=== PATIENT | female | born 1960 | race Caucasian/White ===

== ENCOUNTER 2016-05-30 11:07 | Outpatient (CLI) | payer OTHER | END 2016-05-30 11:08 | disposition home or self-care (01) | DX: Z00.00 Encounter for general adult medical examination without abnormal findings (principal) ==

== ENCOUNTER 2016-12-03 08:00 | Outpatient (CLI) | payer OTHER ==
[2016-12-03 14:14] LABS: BASOPHILS % (AUTO) 0.3 %; EOSINOPHILS # (AUTO) 0.1 10^3/uL (0.0-0.7); HGB - HEMOGLOBIN 11.9 g/dL (12.0-16.0); LYMPHOCYTES # (AUTO) 1.8 10^3/uL (1.5-3.5); LYMPHOCYTES % (AUTO) 21.9 %; MEAN PLATELET VOLUME 8.3 fL (7.9-10.8); MONOCYTES # (AUTO) 0.6 10^3/uL (0.0-1.0); MONOCYTES % (AUTO) 7.5 %; NEUTROPHILS # (AUTO) 5.6 10^3/uL (1.5-6.6); NEUTROPHILS % (AUTO) 69.3 %; NUCLEATED RED BLOOD CELLS AUTO 0.3 /100WBC; RED BLOOD COUNT 4.23 10^6/uL (4.20-5.40); RED CELL DISTRIBUTION WIDTH 13.4 % (12.0-15.0); UNCORRECTED WHITE BLOOD COUNT 8.1 x10^3/uL; WHITE BLOOD COUNT 8.1 x10^3/uL (4.8-10.8)
[2016-12-03 14:26] LABS: ALBUMIN/GLOBULIN RATIO 1.2 (1.0-2.2); BILIRUBIN,TOTAL 0.9 mg/dL (0.2-1.0); CALCIUM 9.2 mg/dL (8.5-10.3); CREATININE 0.7 mg/dL (0.4-1.0); TOTAL PROTEIN 7.6 g/dL (6.7-8.2)
[2016-12-03 17:39] LABS: CHOL/HDL RATIO 3.1 (<4.4); CHOLESTEROL 245 mg/dL; HDL CHOLESTEROL 79 mg/dL; LDL/HDL RATIO 1.9 (<4.4); TRIGLYCERIDES 87 mg/dL; VLDL CHOLESTEROL 17 mg/dL
== END 2016-12-03 08:01 | disposition home or self-care (01) ==
LOC: LAB.WCP 08:00
PROVIDERS: ATTEND Family Medicine
DX: E78.00 Pure hypercholesterolemia, unspecified (principal); K57.92 Diverticulitis of intestine, part unspecified, without perforation or abscess without bleeding
CPT/HCPCS: 36415; 80053; 80061; 85025; 86140

== ENCOUNTER 2016-12-11 11:01 | Outpatient (CLI) | payer OTHER ==
--- NOTE | 2016-12-11 17:41 | Mammography Report ---
DIGITAL DIAGNOSTIC BILATERAL MAMMOGRAM: 12/11/2016 CLINICAL INDICATION: Bilateral breast pain. TECHNIQUE: Bilateral CC, MLO, true lateral views of the breasts were obtained. The patient describe d the pain as diffuse throughout the upper-outer quadrants bilaterally, so no marker was placed. COMPARISON: 02/14/2016, 02/04/2015, 01/01/2014, 12/19/2012, 10/09/2010, 11/01/2009, 07/20/2008, 06/21. The breasts demonstrate fatty replacement bilaterally. No suspicious masses, clustered microcalcific ations, or regions of architectural distortion are identified. IMPRESSION: NEGATIVE EXAMINATION. RECOMMENDATION: ROUTINE ANNUAL SCREENING UNLESS OTHERWISE CLINICALLY INDICATED. BIRADS CATEGORY: 1, NEGATIVE. STANDARD QUALIFYING STATEMENTS 1. This examination was reviewed with the aid of Computed-Aided Detection (CAD). 2. A negative or benign imaging report should not delay biopsy if clinically suspicious findings are present. Consider surgical consultation if warranted. More than 5% of cancers are not identified b y imaging. 3. Dense breasts may obscure an underlying neoplasm. JOB #: [id number] EXT JOB #:[id number]
== END 2016-12-11 11:02 | disposition home or self-care (01) ==
LOC: DI 11:01
PROVIDERS: ATTEND Family Medicine
DX: N64.4 Mastodynia (principal)
CPT/HCPCS: 77066

== ENCOUNTER 2017-04-06 18:52 | Outpatient (CLI) | payer BC, OTHER | END 2017-04-06 18:53 | disposition critical access hospital (66) | LOC: EMS 18:52 | PROVIDERS: ATTEND Surgery | DX: R00.0 Tachycardia, unspecified (principal) | CPT/HCPCS: A0425; A0429 ==

== ENCOUNTER 2017-04-06 19:09 | Emergency (ER) | payer BC, OTHER ==
--- NOTE | 2017-04-06 19:51 | XRAY Preliminary Report ---
Exam: XR CHEST 1 VIEW IMPRESSION: Normal single view chest. [facility] SITE ID: [id number]
--- NOTE | 2017-04-06 19:53 | XRAY Report ---
EXAM: CHEST RADIOGRAPHY EXAM DATE: 04/06/2017 07:42 PM. CLINICAL HISTORY: Dyspnea. COMPARISON: 11/24/2012. TECHNIQUE: 1 view. FINDINGS: Lungs/Pleura: No focal opacities evident. No pleural effusion. No pneumothorax. Mediastinum: Within exam limitations, the cardiomediastinal contour is normal. Other: No bony abnormality identified. IMPRESSION: Normal single view chest. [facility] Referring Provider Line: [phone] SITE ID: [id number]
[2017-04-06 20:08] LABS: ALBUMIN/GLOBULIN RATIO 1.4 (1.0-2.2); BILIRUBIN,TOTAL 0.4 mg/dL (0.2-1.0); CALCIUM 9.2 mg/dL (8.5-10.3); CREATININE 0.8 mg/dL (0.4-1.0); POTASSIUM 3.5 mmol/L (3.5-5.0); TOTAL PROTEIN 7.6 g/dL (6.7-8.2)
[2017-04-06 20:19] LABS: BASOPHILS # (AUTO) 0.1 10^3/uL (0.0-0.1); BASOPHILS % (AUTO) 0.7 %; EOSINOPHILS # (AUTO) 0.1 10^3/uL (0.0-0.7); EOSINOPHILS % (AUTO) 1.6 %; HCT - HEMATOCRIT 39.2 % (37.0-47.0); HGB - HEMOGLOBIN 12.9 g/dL (12.0-16.0); LYMPHOCYTES # (AUTO) 2.8 10^3/uL (1.5-3.5); LYMPHOCYTES % (AUTO) 35.7 %; MEAN CORPUSCULAR HEMOGLOBIN 28.2 pg (27.0-31.0); MEAN CORPUSCULAR VOLUME 85.3 fL (81.0-99.0); MEAN PLATELET VOLUME 7.9 fL (7.9-10.8); MONOCYTES # (AUTO) 0.6 10^3/uL (0.0-1.0); NEUTROPHILS # (AUTO) 4.2 10^3/uL (1.5-6.6); RED BLOOD COUNT 4.59 10^6/uL (4.20-5.40); RED CELL DISTRIBUTION WIDTH 12.5 % (12.0-15.0); UNCORRECTED WHITE BLOOD COUNT 7.8 x10^3/uL; WHITE BLOOD COUNT 7.8 x10^3/uL (4.8-10.8)
[2017-04-06] MEDS ORDERED: LORazepam 2 MG/ML SYRINGE IVP STA (20:29)
--- NOTE | 2017-04-06 20:29 | ED Physician Documentation ---
PD HPI CHEST PAIN - Stated complaint Stated Complaint: SOA/HEART PALPS - Chief complaint Chief Complaint: Resp - History obtained from History obtained from: Patient, Family - History of Present Illness Timing - onset: How many days ago Timing - onset during: Other (talking to her sister debo) Timing - duration: Hours (1) Timing - details: Abrupt onset Pain level max: 4 Pain level now: 3 Quality: Aching, Sharp, Pain Location: Substernal, Left chest Radiation: Jaw, Neck, Left upper extremity Improved by: Nothing Worsened by: No: Exertion, Inspiration, Eating, Movement, Palpation, Position Associated symptoms: Shortness of air, Other (anxious) Similar symptoms before: Diagnosis (anxiety, PVC, PAC) Recently seen: Not recently seen Review of Systems Ten Systems: 10 systems reviewed and negative Constitutional: denies: Fever, Chills Ears: denies: Ear pain Nose: denies: Rhinorrhea / runny nose, Congestion Throat: denies: Sore throat Respiratory: denies: Dyspnea, Cough, Wheezing GI: denies: Abdominal Pain, Nausea, Vomiting, Diarrhea Skin: denies: Rash Musculoskeletal: denies: Neck pain, Back pain Neurologic: denies: Focal weakness, Numbness, Headache PD PAST MEDICAL HISTORY - Past Medical History Past Medical History: Yes GI: Diverticulitis Psych: Anxiety, Panic attacks, Post traumatic stress disorder - Past Surgical History Past Surgical History: Yes General: Appendectomy - Present Medications Home Medications: Ambulatory Orders Medication Instructions Recorded Confirmed ALPRAZolam [Alprazolam] 1 tab PO DAILY 08/06/14 04/06/17 Acyclovir 400 mg PO PRN 08/06/14 08/06/14 Aspirin 81 mg PO DAILY 08/06/14 04/06/17 Cetirizine HCl [Zyrtec] 10 mg PO DAILY 08/06/14 04/06/17 Cyclobenzaprine HCl 10 mg PO DAILY 08/06/14 04/06/17 Fluticasone [Flonase] 1 sprays FRIEDA DAILY 08/06/14 04/06/17 Krill/[place]-3/Dha/Epa/Lipids 1 each PO DAILY 08/06/14 04/06/17 [Krill Oil 300 mg Softgel] Naproxen [Naprosyn] 500 mg PO BID PRN 08/06/14 04/06/17 Promethazine HCl 25 mg PO Q6HR PRN 08/06/14 04/06/17 Valacyclovir HCl [Valtrex] 2 tab PO DAILY 08/06/14 04/06/17 - Allergies Allergies/Adverse Reactions: Allergies Allergy/AdvReac Type Severity Reaction Status Date / Time Penicillins Allergy Unknown Verified 04/06/17 19:19 - Social History Does the pt smoke?: No Smoking Status: Never smoker Does the pt drink ETOH?: No Does the pt have substance abuse?: No - Immunizations Immunizations are current?: Yes - POLST Patient has POLST: No PD ED PE NORMAL - Vitals Vital signs reviewed: Yes - General General: Alert and oriented X 3, No acute distress - HEENT HEENT: PERRL, Moist mucous membranes, Pharynx benign - Neck Neck: Supple, no meningeal sign - Cardiac Cardiac: RRR, Strong equal pulses - Respiratory Respiratory: No respiratory distress, Clear bilaterally - Abdomen Abdomen: Soft, Non tender, Non distended - Derm Derm: Warm and dry, No rash - Extremities Extremities: Normal ROM s pain, No edema, No calf tenderness / cord - Neuro Neuro: Alert and oriented X 3 - Psych Psych: Other (anxious) Results - Vitals Vitals: Vital Signs - 24 hr 04/06/17 04/06/17 04/06/17 19:10 19:45 20:22 Temperature 36.7 C Heart Rate 105 H 93 87 Respiratory 17 14 18 Rate Blood Pressure 159/98 H 147/86 H 136/81 H O2 Saturation 99 100 97 04/06/17 04/06/17 21:00 22:38 Temperature Heart Rate 88 86 Respiratory 15 16 Rate Blood Pressure 124/71 110/65 O2 Saturation 96 100 Oxygen O2 Source Room air - EKG (time done) 1912 Rate: Rate (enter#) (105) Rhythm: Sinus tachycardia [place]: Normal Intervals: Normal NV QRS: Normal Ischemia: Normal ST segments Computer interpretation: Agree with computer - Labs Labs: Laboratory Tests 04/06/17 04/06/17 04/06/17 18:34 18:34 18:34 WBC 7.8 RBC 4.59 Hgb 12.9 Hct 39.2 MCV 85.3 MCH 28.2 MCHC 33.0 RDW 12.5 Plt Count 275 MPV 7.9 Neut # 4.2 Lymph # 2.8 [place] # 0.6 Eos # 0.1 Baso # 0.1 Absolute Nucleated RBC 0.00 Nucleated RBC % 0.0 D-Dimer Sodium 137 Potassium 3.5 Chloride 100 L Carbon Dioxide 21 Anion Gap 16.0 H BUN 18 Creatinine 0.8 Estimated GFR (MDRD) 74 L Glucose 97 Calcium 9.2 Total Bilirubin 0.4 AST 21 ALT 17 Alkaline Phosphatase 92 Troponin I < 0.04 Total Protein 7.6 Albumin 4.4 Globulin 3.2 Albumin/Globulin Ratio 1.4 Lipase 36 04/06/17 04/06/17 18:34 21:50 WBC RBC Hgb Hct MCV MCH MCHC RDW Plt Count MPV Neut # Lymph # [place] # Eos # Baso # Absolute Nucleated RBC Nucleated RBC % D-Dimer < 200.0 L Sodium Potassium Chloride Carbon Dioxide Anion Gap BUN Creatinine Estimated GFR (MDRD) Glucose Calcium Total Bilirubin AST ALT Alkaline Phosphatase Troponin I < 0.04 Total Protein Albumin Globulin Albumin/Globulin Ratio Lipase - Rads (name of study) cxr Radiology: Prelim report reviewed, EMP read contemporaneously, See rad report ( Normal single view chest. ) PD MEDICAL DECISION MAKING - ED course Complexity details: reviewed results, re-evaluated patient, considered differential (No ST elevation AR, no aortic dissection, no PE, no tension pneumothorax, no aortic aneurysm), d/w patient, d/w family ED course: Patient is a 57-year-old female with atypical chest pain today. Feels like her prior anxiety and PVC attacks. Negative troponin 2. HEART score of 1. took ASA BUG TRIMMER. Symptoms resolved with Ativan. Will have her follow-up with her doctor for further evaluation and care. Patient counseled regarding signs and symptoms for which I believe and urgent re-evaluation would be necessary. Patient with good understanding of and agreement to plan and is comfortable going home at this time This document was made in part using voice recognition software. While efforts are made to proofread this document, sound alike and grammatical errors may occur... Patient also within the past 2 years has had negative treadmill and nuclear medicine cardiac stress test. Departure - Departure Disposition: 01 Home, Self Care Clinical Impression: Chest pain Qualifiers: Chest pain type: unspecified Qualified Code(s): R07.9 - Chest pain, unspecified Condition: Good Instructions: ED Chest Pain Atypical Unkn Cause Follow-Up: Young,Ydui L, PA-C [Primary Care Provider] - Within 1 week Comments: The cause of your symptoms is unclear tonight. Return if you worsen. Discharge Date/Time: 04/06/17 22:39
[2017-04-06] MEDS ORDERED: LORazepam 2 MG/ML SYRINGE ONE (20:40)
[2017-04-06 22:39] VITALS: BP 110/65
== END 2017-04-06 22:39 | disposition home or self-care (01) ==
LOC: EDUNIT# → ED 19:09
DX: R07.9 Chest pain, unspecified (principal)
CPT/HCPCS: 36415; 71010; 80053; 83690; 84484; 85025; 85379; 93005; 96374; 99284; 99285; J2060

== ENCOUNTER 2017-07-11 08:00 | Outpatient (CLI) | payer BC, OTHER ==
[2017-07-11 18:45] LABS: BASOPHILS % (AUTO) 0.5 %; EOSINOPHILS # (AUTO) 0.2 10^3/uL (0.0-0.7); EOSINOPHILS % (AUTO) 1.8 %; HGB - HEMOGLOBIN 13.1 g/dL (12.0-16.0); LYMPHOCYTES # (AUTO) 2.6 10^3/uL (1.5-3.5); LYMPHOCYTES % (AUTO) 30.5 %; MEAN CORPUSCULAR HEMOGLOBIN 27.7 pg (27.0-31.0); MEAN CORPUSCULAR HGB CONC 32.5 g/dL (32.0-36.0); MEAN CORPUSCULAR VOLUME 85.3 fL (81.0-99.0); MEAN PLATELET VOLUME 8.3 fL (7.9-10.8); MONOCYTES # (AUTO) 0.7 10^3/uL (0.0-1.0); MONOCYTES % (AUTO) 8.1 %; NEUTROPHILS # (AUTO) 5.1 10^3/uL (1.5-6.6); NEUTROPHILS % (AUTO) 59.1 %; PLT - PLATELET COUNT 285 10^3/uL (130-450); RED BLOOD COUNT 4.74 10^6/uL (4.20-5.40); RED CELL DISTRIBUTION WIDTH 12.9 % (12.0-15.0); WHITE BLOOD COUNT 8.6 x10^3/uL (4.8-10.8)
[2017-07-11 19:01] LABS: ALBUMIN 4.2 g/dL (3.2-5.5); ALBUMIN/GLOBULIN RATIO 1.2 (1.0-2.2); ALKALINE PHOSPHATASE 88 IU/L (42-121); ALT ALANINE AMINOTRANSFERASE 17 IU/L (10-60); AST ASPARTATE AMINOTRANSFERASE 20 IU/L (10-42); BILIRUBIN,TOTAL 0.7 mg/dL (0.2-1.0); BUN - BLOOD UREA NITROGEN 11 mg/dL (6-20); CALCIUM 9.2 mg/dL (8.5-10.3); CARBON DIOXIDE - CO2 26 mmol/L (21-32); CHLORIDE 102 mmol/L (101-111); CHOL/HDL RATIO 3.8 (<4.4); CHOLESTEROL 242 mg/dL; CREATININE 0.7 mg/dL (0.4-1.0); GFR - MDRD 87 (>89); GLUCOSE 87 mg/dL (70-100); HDL CHOLESTEROL 64 mg/dL; LDL CHOLESTEROL,CALCULATED 147 mg/dL; LDL/HDL RATIO 2.3 (<4.4); SODIUM 139 mmol/L (135-145); TOTAL PROTEIN 7.7 g/dL (6.7-8.2); VLDL CHOLESTEROL 31 mg/dL
== END 2017-07-11 08:01 | disposition home or self-care (01) ==
LOC: LAB.WCP 08:00
PROVIDERS: ATTEND Physician Assistant Medical
DX: Z00.00 Encounter for general adult medical examination without abnormal findings (principal)
CPT/HCPCS: 36415; 80053; 80061; 83721; 84443; 85025

== ENCOUNTER 2018-04-18 17:28 | Emergency (ER) | payer BC, OTHER ==
[2018-04-18 17:39] VITALS: BP 152/87
--- NOTE | 2018-04-18 17:57 | ED Physician Documentation ---
History of Present Illness - Stated complaint Stated Complaint: PER OLIVE ELLIOTT SHINLIAM - Chief complaint Chief Complaint: General - History obtained from History obtained from: Patient - History of Present Illness Timing: Today (She has had shingles in the past. She has a single nonpainful lesion on the right upper arm. She is worried about shingles) Review of Systems Constitutional: denies: Fever, Chills, Myalgias, Fatigue, Weight Loss Eyes: denies: Loss of vision, Decreased vision, Photophobia Ears: denies: Loss of hearing, Ear pain Nose: denies: Rhinorrhea / runny nose, Congestion Throat: denies: Sore throat PD PAST MEDICAL HISTORY - Past Medical History Past Medical History: Yes Cardiovascular: None Respiratory: None Neuro: None, Migraines Endocrine/Autoimmune: None GI: Diverticulitis ONCOLOGY COORDINATOR: None : None HEENT: None Psych: Anxiety, Panic attacks, Post traumatic stress disorder Musculoskeletal: None Derm: None - Past Surgical History Past Surgical History: Yes General: Appendectomy - Present Medications Home Medications: Ambulatory Orders Medication Instructions Recorded Confirmed ALPRAZolam [Alprazolam] 1 tab PO DAILY 08/06/14 04/06/17 Acyclovir 400 mg PO PRN 08/06/14 08/06/14 Aspirin 81 mg PO DAILY 08/06/14 04/06/17 Cyclobenzaprine HCl 10 mg PO DAILY 08/06/14 04/06/17 Fluticasone [Flonase] 1 sprays FRIEDA DAILY 08/06/14 04/06/17 Krill/[place]-3/Dha/Epa/Lipids 1 each PO DAILY 08/06/14 04/06/17 [Krill Oil 300 mg Softgel] Naproxen [Naprosyn] 500 mg PO BID PRN 08/06/14 04/06/17 Promethazine HCl 25 mg PO Q6HR PRN 08/06/14 04/06/17 Valacyclovir HCl [Valtrex] 2 tab PO PRN 08/06/14 04/06/17 Acyclovir [Zovirax] 800 mg PO 5XD #50 tablet 04/18/18 - Allergies Allergies/Adverse Reactions: Allergies Allergy/AdvReac Type Severity Reaction Status Date / Time Penicillins Allergy Unknown Verified 04/18/18 17:39 - Social History Does the pt smoke?: No Smoking Status: Never smoker Does the pt drink ETOH?: No Does the pt have substance abuse?: No - Immunizations Immunizations are current?: Yes - POLST Patient has POLST: No PD ED PE NORMAL - Vitals Vital signs reviewed: Yes - General General: Alert and oriented X 3, No acute distress - HEENT HEENT: PERRL, EOMI - Neck Neck: Supple, no meningeal sign, No bony TTP - Extremities Extremities: Other (There is a single small vesicular lesion on the right upper arm. It is not on a red base and there are no grouped vesicles.) - Neuro Neuro: Alert and oriented X 3, Normal speech Results - Vitals Vitals: Vital Signs - 24 hr 04/18/18 17:36 Temperature 36.4 C L Heart Rate 96 Respiratory 18 Rate Blood Pressure 152/87 H O2 Saturation 100 Oxygen O2 Source Room air PD MEDICAL DECISION MAKING - ED course ED course: Really at this point this is not consistent with shingles, its only a single lesion. We discussed that this might develop into shingles, and I offered her a [id number] prescription for acyclovir. Departure - Departure Disposition: 01 Home, Self Care Clinical Impression: Rash and nonspecific skin eruption Condition: Good Record reviewed to determine appropriate education?: Yes Prescriptions: Acyclovir [Zovirax] 800 mg PO 5XD #50 tablet Comments: You can start the acyclovir if you get more lesions, if you get new or worrisome symptoms please return for reevaluation. Your blood pressure was elevated today on check into the emergency department. This does not mean that you have hypertension, it is a common phenomenon to come to the emergency department and have elevated blood pressure. I recommend that you see your primary care physician within the week to have it rechecked when you are feeling better.
== END 2018-04-18 17:58 | disposition home or self-care (01) ==
LOC: ED 17:28
DX: R21 Rash and other nonspecific skin eruption (principal); R03.0 Elevated blood-pressure reading, without diagnosis of hypertension; Z87.2 Personal history of diseases of the skin and subcutaneous tissue; Z79.82 Long term (current) use of aspirin
CPT/HCPCS: 99283

== ENCOUNTER 2019-02-12 08:00 | Outpatient (CLI) | payer BC, OTHER ==
[2019-02-12 12:04] LABS: BASOPHILS % (AUTO) 0.6 %; EOSINOPHILS # (AUTO) 0.1 10^3/uL (0.0-0.7); EOSINOPHILS % (AUTO) 1.6 %; HGB - HEMOGLOBIN 12.5 g/dL (12.0-16.0); LYMPHOCYTES # (AUTO) 2.1 10^3/uL (1.5-3.5); LYMPHOCYTES % (AUTO) 30.4 %; MEAN CORPUSCULAR HEMOGLOBIN 27.4 pg (27.0-31.0); MEAN CORPUSCULAR HGB CONC 30.9 g/dL (32.0-36.0); MEAN CORPUSCULAR VOLUME 88.4 fL (81.0-99.0); MEAN PLATELET VOLUME 9.9 fL (7.9-10.8); MONOCYTES # (AUTO) 0.6 10^3/uL (0.0-1.0); MONOCYTES % (AUTO) 8.4 %; NEUTROPHILS % (AUTO) 58.6 %; PLT - PLATELET COUNT 384 10^3/uL (130-450); RED BLOOD COUNT 4.57 10^6/uL (4.20-5.40); RED CELL DISTRIBUTION WIDTH 12.2 % (12.0-15.0); WHITE BLOOD COUNT 6.8 x10^3/uL (4.8-10.8)
[2019-02-12 13:06] LABS: ALBUMIN 4.2 g/dL (3.2-5.5); ALBUMIN/GLOBULIN RATIO 1.1 (1.0-2.2); ALKALINE PHOSPHATASE 95 IU/L (42-121); ALT ALANINE AMINOTRANSFERASE 21 IU/L (10-60); AST ASPARTATE AMINOTRANSFERASE 22 IU/L (10-42); BILIRUBIN,TOTAL 0.5 mg/dL (0.2-1.0); BUN - BLOOD UREA NITROGEN 13 mg/dL (6-20); CALCIUM 9.5 mg/dL (8.5-10.3); CARBON DIOXIDE - CO2 27 mmol/L (21-32); CHLORIDE 105 mmol/L (101-111); CHOL/HDL RATIO 3.7 (<4.4); CHOLESTEROL 234 mg/dL; CREATININE 0.8 mg/dL (0.4-1.0); GFR - MDRD 74 (>89); GLUCOSE 93 mg/dL (70-100); HDL CHOLESTEROL 64 mg/dL; LDL CHOLESTEROL,CALCULATED 147 mg/dL; LDL/HDL RATIO 2.3 (<4.4); SODIUM 140 mmol/L (135-145); TOTAL PROTEIN 7.9 g/dL (6.7-8.2); VLDL CHOLESTEROL 23 mg/dL
[2019-02-13 13:11] LABS: HEPATITIS C ANTIBODY NON-REACTIVE (NON-REACTIVE)
== END 2019-02-12 23:59 | disposition home or self-care (01) ==
LOC: LAB.WCP 08:00
PROVIDERS: ATTEND Physician Assistant Medical
DX: Z00.00 Encounter for general adult medical examination without abnormal findings (principal); Z11.59 Encounter for screening for other viral diseases
CPT/HCPCS: 36415; 80053; 80061; 83721; 84443; 85025; 86803

== ENCOUNTER 2020-01-06 16:47 | Outpatient (CLI) | payer OTHER ==
--- NOTE | 2020-01-06 17:53 | XRAY Report ---
PROCEDURE: Knee Standing BILAT INDICATIONS: KNEE PAIN LEFT TECHNIQUE: 3 views of the right knee, and 3 views of the left knee. COMPARISON: None. FINDINGS: Bones: No acute fractures or dislocations. No suspicious bony lesions. Mild bilateral medial femora l tibial compartment joint space narrowing is seen slightly more prominent on the left side with subc hondral sclerosis. Soft tissues: Small left suprapatellar joint effusion is seen.. No suspicious soft tissue calcificat ion. IMPRESSION: Mild left worse than right bilateral medial femoral tibial compartment joint space narrowing. Small l eft suprapatellar joint effusion. Reviewed by: Aldo Shaw MD on 01/06/2020 5:52 PM PDT Approved by: Aldo Shaw MD on 01/06/2020 5:52 PM PDT Station ID: [id number]
--- NOTE | 2020-01-06 17:54 | XRAY Report ---
PROCEDURE: Knee 4 View LT INDICATIONS: KNEE PAIN LEFT TECHNIQUE: 4 views of the left knee(s) were acquired. COMPARISON: None. FINDINGS: Bones: Mild medial femoral tibial compartment joint space narrowing and subchondral sclerosis is see n in left knee. No fractures or dislocations. No suspicious bony lesions. Soft tissues: Small suprapatellar joint effusion is seen. No suspicious soft tissue calcifications. IMPRESSION: Mild medial femoral tibial compartment osteoarthritis. Small joint effusion. No fracture or dislocation. Reviewed by: Aldo Shaw MD on 01/06/2020 5:52 PM PDT Approved by: Aldo Shaw MD on 01/06/2020 5:52 PM PDT Station ID: [id number]
== END 2020-01-06 16:48 | disposition home or self-care (01) ==
LOC: DI 16:47
PROVIDERS: ATTEND Nurse Practitioner Family
DX: M17.0 Bilateral primary osteoarthritis of knee (principal); M25.462 Effusion, left knee
CPT/HCPCS: 73565

== ENCOUNTER 2020-02-09 15:25 | Outpatient (CLI) | payer OTHER ==
--- NOTE | 2020-02-10 14:13 | Mammography Report ---
BILATERAL DIGITAL SCREENING MAMMOGRAM 3D/2D: 02/09/2020 CLINICAL: Routine screening. Comparison is made to exams dated: 12/11/2016 mammogram, 02/14/2016 mammogram, 02/04/2015 mammogram, mammogram, 12/19/2012 mammogram, and 10/09/2010 mammogram - [facility]. There are scattered fibroglandular elements in both breasts. No significant masses, calcifications, or other findings are seen in either breast. There has been no significant interval change. IMPRESSION: NEGATIVE There is no mammographic evidence of malignancy. A 1 year screening mammogram is recommended. This exam was interpreted at Station ID: [id number]. NOTE: For mammograms, a report in lay terms will be sent to the patient. Approximately 15% of breast malignancies will not be visualized mammographically. In the management of a palpable breast mass, a negative mammogram must not discourage biopsy of a clinically suspicious lesion. Electronically Signed By: Luis Buck M.D., jr/darron:02/09/2020 16:20:47 ACR BI-RADS Category 1: Negative 3341F PARENCHYMAL PATTERN: (A) - The breast(s) demonstrate(s) scattered fibroglandular densities. BI-RADS CATEGORY: (1) - 1 RECOMMENDATION: (ANNUAL) - Recommend routine annual screening mammography. [id number] 1 year screening LATERALITY: (B)
== END 2020-02-09 15:26 | disposition home or self-care (01) ==
LOC: DI 15:25
DX: Z12.31 Encounter for screening mammogram for malignant neoplasm of breast (principal)
CPT/HCPCS: 77063; 77067

== ENCOUNTER 2020-06-07 07:55 | Outpatient (CLI) | payer OTHER ==
[2020-06-07 13:24] LABS: BASOPHILS % (AUTO) 0.6 %; EOSINOPHILS # (AUTO) 0.1 10^3/uL (0.0-0.7); EOSINOPHILS % (AUTO) 1.8 %; HGB - HEMOGLOBIN 12.3 g/dL (12.0-16.0); LYMPHOCYTES # (AUTO) 2.8 10^3/uL (1.5-3.5); LYMPHOCYTES % (AUTO) 39.4 %; MEAN CORPUSCULAR HEMOGLOBIN 27.9 pg (27.0-31.0); MEAN CORPUSCULAR HGB CONC 30.8 g/dL (32.0-36.0); MEAN CORPUSCULAR VOLUME 90.7 fL (81.0-99.0); MEAN PLATELET VOLUME 10.3 fL (7.9-10.8); MONOCYTES # (AUTO) 0.6 10^3/uL (0.0-1.0); MONOCYTES % (AUTO) 8.7 %; NEUTROPHILS # (AUTO) 3.5 10^3/uL (1.5-6.6); NEUTROPHILS % (AUTO) 49.1 %; PLT - PLATELET COUNT 280 10^3/uL (130-450); RED BLOOD COUNT 4.41 10^6/uL (4.20-5.40); RED CELL DISTRIBUTION WIDTH 12.4 % (12.0-15.0)
[2020-06-07 13:25] LABS: ALBUMIN 4.4 g/dL (3.2-5.5); ALBUMIN/GLOBULIN RATIO 1.5 (1.0-2.2); ALKALINE PHOSPHATASE 92 IU/L (42-121); ALT ALANINE AMINOTRANSFERASE 19 IU/L (10-60); AST ASPARTATE AMINOTRANSFERASE 19 IU/L (10-42); BILIRUBIN,TOTAL 0.7 mg/dL (0.2-1.0); BUN - BLOOD UREA NITROGEN 21 mg/dL (6-20); CALCIUM 9.4 mg/dL (8.5-10.3); CARBON DIOXIDE - CO2 25 mmol/L (21-32); CHLORIDE 102 mmol/L (101-111); CHOL/HDL RATIO 4.1 (<4.4); CHOLESTEROL 265 mg/dL; CREATININE 0.8 mg/dL (0.4-1.0); GLUCOSE 91 mg/dL (70-100); HDL CHOLESTEROL 65 mg/dL; LDL CHOLESTEROL,CALCULATED 185 mg/dL; LDL/HDL RATIO 2.8 (<4.4); SODIUM 139 mmol/L (135-145); TOTAL PROTEIN 7.3 g/dL (6.7-8.2); VLDL CHOLESTEROL 15 mg/dL
== END 2020-06-07 07:56 | disposition home or self-care (01) ==
LOC: LAB.WCP 07:55
PROVIDERS: ATTEND Nurse Practitioner Family
DX: Z00.00 Encounter for general adult medical examination without abnormal findings (principal)
CPT/HCPCS: 36415; 80053; 80061; 83721; 84443; 85025

== ENCOUNTER 2020-07-13 15:05 | Outpatient (CLI) | payer OTHER ==
--- NOTE | 2020-07-13 17:06 | Ultrasound Report ---
PROCEDURE: Pelvic w/Transvaginal INDICATIONS: ENDOMETRIAL TECHNIQUE: Real-time scanning was performed of the pelvic organs, with image documentation. Additional endovagi nal scanning was necessary due to incomplete visualization of the adnexal and endometrial structures by transabdominal scanning. COMPARISON: Prior ultrasound abdomen 06/24/2018. FINDINGS: No pathologic free abdominal or pelvic fluid. Uterus: Uterus is normal in size at 4.3 x 4.6 x 8.4 cm. The endometrium measures 4.0 mm in combined thickness. There is a dominant uterine fibroid, on the right extending from anterior to posterior a nd measuring up to 4.8 x 3.0 x 5.2 cm. This likely has not significantly changed from the prior measu rements of 5.4 x 4.4 x 4.6 cm. Ovaries: Right ovary is not visualized, left ovary measures 1.7 x 0.8 x 0.8 cm. IMPRESSION: Nonvisualization of the right ovary, normal appearance of the left ovary, no significant change in a large uterine fibroid that measures up to 4.8 x 3.0 x 5.2 cm currently. Reviewed by: Hector Hopkins MD on 07/13/2020 5:05 PM PST Approved by: Hector Hopkins MD on 07/13/2020 5:05 PM PST Station ID: [id number]
== END 2020-07-13 15:06 | disposition home or self-care (01) ==
LOC: DI 15:05
PROVIDERS: ATTEND Nurse Practitioner Family
DX: D25.9 Leiomyoma of uterus, unspecified (principal); Z98.890 Other specified postprocedural states

== ENCOUNTER 2020-07-22 16:00 | Outpatient (CLI) | payer OTHER ==
--- NOTE | 2020-07-22 16:48 | XRAY Report ---
PROCEDURE: Abdomen 1 View X-Ray INDICATIONS: RUQ PAIN TECHNIQUE: 1 view of the abdomen were acquired. COMPARISON: None. FINDINGS: Surgical changes and devices: None. Bowel: No pneumoperitoneum. The bowel gas pattern is normal. Moderate stool Soft tissues: No masses; visualized solid organ contours appear normal in size. No suspicious abdom inal calcifications. Bones: No suspicious bony abnormalities. IMPRESSION: No specific evidence of bowel obstruction although continued surveillance with abdominal radiographs could be performed if the patient's symptoms do not improve. Moderate stool Reviewed by: Sung Pizano MD on 07/22/2020 4:47 PM PST Approved by: Sung Pizano MD on 07/22/2020 4:47 PM PST Station ID: [id number]
== END 2020-07-22 23:59 | disposition home or self-care (01) ==
LOC: DI.N 16:00
PROVIDERS: ATTEND Physician Assistant Medical
DX: R10.11 Right upper quadrant pain (principal)

== ENCOUNTER 2020-11-29 08:00 | Outpatient (CLI) | payer OTHER ==
[2020-11-29 18:23] LABS: CHOL/HDL RATIO 4.3 (<4.4); CHOLESTEROL 291 mg/dL; HDL CHOLESTEROL 68 mg/dL; LDL CHOLESTEROL,CALCULATED 184 mg/dL; LDL/HDL RATIO 2.7 (<4.4); TRIGLYCERIDES 197 mg/dL; VLDL CHOLESTEROL 39 mg/dL
== END 2020-11-29 23:59 | disposition home or self-care (01) ==
LOC: LAB.WCP 08:00
PROVIDERS: ATTEND Physician Assistant Medical
DX: E78.00 Pure hypercholesterolemia, unspecified (principal)
CPT/HCPCS: 36415; 80061; 83721

== ENCOUNTER 2020-12-02 08:08 | Outpatient (CLI) | payer OTHER ==
[2020-12-02 12:27] LABS: THYROID STIMULATING HORMONE 3.1 uIU/mL (0.34-5.60)
== END 2020-12-02 23:59 | disposition home or self-care (01) ==
LOC: LAB.WCP 08:08
PROVIDERS: ATTEND Physician Assistant Medical
DX: Z00.00 Encounter for general adult medical examination without abnormal findings (principal)
CPT/HCPCS: 36415; 84443

== ENCOUNTER 2021-01-24 11:41 | Day surgery (SDC) | payer OTHER ==
--- NOTE | 2021-01-24 12:44 | ANESTHESIA ---
Pre-Anesthesia VS, & Labs - Diagnosis diverticulitis, family history of colon cancer - Procedure colonoscopy Vital Signs: Temp Pulse Resp BP Pulse Ox 37.1 C 84 18 127/84 H 100 01/24/21 11:56 01/24/21 11:56 01/24/21 11:56 01/24/21 11:56 01/24/21 11:56 Height: 5 ft 5 in Weight (kg): 65 kg Body Mass Index: 23.8 BMI Classification: Healthy weight - NPO >8 hours - Is Patient ?: No Home Medications and Allergies ALPRAZolam [Alprazolam] 1 tab PO DAILY 08/06/14 Aspirin 81 mg PO DAILY 08/06/14 Fluticasone [Flonase] 1 sprays FRIEDA DAILY 08/06/14 Krill/[place]-3/Dha/Epa/Lipids [Krill Oil 300 mg Softgel] 1 each PO DAILY 08/06/14 Allergies/Adverse Reactions: Allergies Allergy/AdvReac Type Severity Reaction Status Date / Time Penicillins Allergy Unknown Verified 04/18/18 17:39 Anes History & Medical History - Anesthetic History Anesthesia Complications: reports: No previous complications - Medical History Cardiovascular: reports: High cholesterol Pulmonary: reports: None Gastrointestinal: reports: Diverticulitis Urinary: reports: None Neuro: reports: None, Migraines Musculoskeletal: reports: None Endocrine/Autoimmune: reports: None Blood Disorders: reports: None Skin: reports: None Smoking Status: Never smoker - Surgical History General: reports: Appendectomy Exam General: Alert, Oriented x3 Dental: WNL Mouth Opening: Greater than 4 Fingerbreadths Mallampati classification: II Respiratory: Lungs clear Cardiovascular: Regular rate Plan Anesthesia Type: Total IV Consent for Procedure(s) Verified and Reviewed: Yes Code Status: Attempt Resuscitation ASA classification: 2-Mild systemic disease Is this case an emergency?: No
[2021-01-24] MEDS ORDERED: PROPOFOL 500 MG/50 ML 500 MG/50 ML VIAL ONE (13:02)
[2021-01-24] MEDS ORDERED: LACTATED RINGERS 1,000 ML IV ONE (13:43)
[2021-01-24 14:41] VITALS: BP 110/72
--- NOTE | 2021-01-24 15:55 | ANESTHESIA POST OP EVALUATION ---
Anesthesia Post Eval - Post Anesthesia Eval Vitals: Last Vital Signs Temp 36.4 C L 01/24/21 14:20 Pulse 84 01/24/21 14:20 Resp 12 01/24/21 14:20 BP 110/72 01/24/21 14:20 Pulse Ox 100 01/24/21 14:20 CV Function Including HR & BP: Stable Pain Control: Satisfactory Nausea & Vomiting: Negative Mental Status: Baseline Respiratory Status: Airway Patent Hydration Status: Satisfactory Anesthesia Complications: None
[2021-01-24] MEDS ORDERED: ePHEDrine 50 MG/ML VIAL IVP ONE (17:11)
== END 2021-01-24 11:42 | disposition home or self-care (01) ==
LOC: SDS 11:41
PROVIDERS: ATTEND Surgery
DX: Z12.11 Encounter for screening for malignant neoplasm of colon (principal); K57.30 Diverticulosis of large intestine without perforation or abscess without bleeding; K64.8 Other hemorrhoids; K64.4 Residual hemorrhoidal skin tags; Z86.010 Personal history of colon polyps; Z80.0 Family history of malignant neoplasm of digestive organs
CPT/HCPCS: 45378; J7120

== ENCOUNTER 2021-02-27 11:00 | Outpatient (CLI) | payer OTHER ==
[2021-02-27 18:58] LABS: CHOL/HDL RATIO 3.8 (<4.4); CHOLESTEROL 276 mg/dL; HDL CHOLESTEROL 73 mg/dL; LDL CHOLESTEROL,CALCULATED 184 mg/dL; LDL/HDL RATIO 2.5 (<4.4); TRIGLYCERIDES 94 mg/dL; VLDL CHOLESTEROL 19 mg/dL
== END 2021-02-27 23:59 | disposition home or self-care (01) ==
LOC: LAB.WCP 11:00
PROVIDERS: ATTEND Physician Assistant Medical
DX: I10 Essential (primary) hypertension (principal); E78.00 Pure hypercholesterolemia, unspecified
CPT/HCPCS: 36415; 80061; 83721

== ENCOUNTER 2022-06-29 09:41 | Outpatient (CLI) | payer OTHER ==
--- NOTE | 2022-07-03 12:22 | Mammography Report ---
BILATERAL DIGITAL SCREENING MAMMOGRAM 3D/2D: 06/29/2022 CLINICAL: Routine screening. Sister with breast cancer. Comparison is made to exams dated: 02/09/2020 mammogram, 12/11/2016 mammogram, 02/14/2016 mammogram, mammogram, 01/01/2014 mammogram, and 12/19/2012 mammogram - [facility]. There are scattered areas of fibroglandular density in both breasts (category b / 25%-50% glandular t issue). No significant masses, calcifications, or other findings are seen in either breast. There has been no significant interval change. IMPRESSION: NEGATIVE There is no mammographic evidence of malignancy. A 1 year screening mammogram is recommended. This exam was interpreted at Station ID: [id number]. NOTE: For mammograms, a report in lay terms will be sent to the patient. Approximately 15% of breast malignancies will not be visualized mammographically. In the management of a palpable breast mass, a negative mammogram must not discourage biopsy of a clinically suspicious lesion. Electronically Signed By: Jessica prajapati/darron:07/02/2022 17:36:54 ACR BI-RADS Category 1: Negative 3341F PARENCHYMAL PATTERN: (A) - The breast(s) demonstrate(s) scattered fibroglandular densities. BI-RADS CATEGORY: (1) - 1 RECOMMENDATION: (ANNUAL) - Recommend routine annual screening mammography. [id number] 1 year screening LATERALITY: (B)
== END 2022-06-29 09:42 | disposition home or self-care (01) ==
LOC: DI 09:41
DX: Z12.31 Encounter for screening mammogram for malignant neoplasm of breast (principal); Z80.3 Family history of malignant neoplasm of breast

== ENCOUNTER 2023-05-15 14:32 | Outpatient (CLI) | payer OTHER ==
[2023-05-15 18:02] LABS: BASOPHILS # (AUTO) 0.1 10^3/uL (0.0-0.1); BASOPHILS % (AUTO) 0.8 %; EOSINOPHILS # (AUTO) 0.2 10^3/uL (0.0-0.7); EOSINOPHILS % (AUTO) 2.5 %; HCT - HEMATOCRIT 42.6 % (37.0-47.0); HGB - HEMOGLOBIN 13.6 g/dL (12.0-16.0); LYMPHOCYTES # (AUTO) 3.2 10^3/uL (1.5-3.5); LYMPHOCYTES % (AUTO) 40.2 %; MEAN CORPUSCULAR HEMOGLOBIN 28.3 pg (27.0-31.0); MEAN CORPUSCULAR HGB CONC 31.9 g/dL (32.0-36.0); MEAN CORPUSCULAR VOLUME 88.6 fL (81.0-99.0); MEAN PLATELET VOLUME 10.2 fL (7.9-10.8); MONOCYTES # (AUTO) 0.5 10^3/uL (0.0-1.0); MONOCYTES % (AUTO) 6.6 %; NEUTROPHILS # (AUTO) 3.9 10^3/uL (1.5-6.6); NEUTROPHILS % (AUTO) 49.6 %; PLT - PLATELET COUNT 316 10^3/uL (130-450); RED BLOOD COUNT 4.81 10^6/uL (4.20-5.40); RED CELL DISTRIBUTION WIDTH 12.4 % (12.0-15.0); WHITE BLOOD COUNT 7.9 x10^3/uL (4.8-10.8)
[2023-05-15 18:25] LABS: ALBUMIN 4.6 g/dL (3.2-5.5); ALBUMIN/GLOBULIN RATIO 1.7 (1.0-2.2); ALKALINE PHOSPHATASE 94 IU/L (42-121); ALT ALANINE AMINOTRANSFERASE 17 IU/L (10-60); AST ASPARTATE AMINOTRANSFERASE 18 IU/L (10-42); BILIRUBIN,TOTAL 0.6 mg/dL (0.2-1.0); BUN - BLOOD UREA NITROGEN 12 mg/dL (6-20); CALCIUM 9.7 mg/dL (8.5-10.3); CARBON DIOXIDE - CO2 27 mmol/L (21-32); CHLORIDE 105 mmol/L (101-111); CHOL/HDL RATIO 2.6 (<4.4); CHOLESTEROL 180 mg/dL; CREATININE 0.7 mg/dL (0.6-1.3); GFR - MDRD 85 (>89); GLUCOSE 90 mg/dL (74-104); HDL CHOLESTEROL 68 mg/dL; LDL CHOLESTEROL,CALCULATED 85 mg/dL; LDL/HDL RATIO 1.3 (<4.4); POTASSIUM 4.3 mmol/L (3.5-4.5); SODIUM 140 mmol/L (135-145); TOTAL PROTEIN 7.3 g/dL (6.4-8.9); TRIGLYCERIDES 134 mg/dL (48-352); VLDL CHOLESTEROL 27 mg/dL
[2023-05-15 18:29] LABS: THYROID STIMULATING HORMONE 2.59 uIU/mL (0.34-5.60)
== END 2023-05-15 14:33 | disposition home or self-care (01) ==
LOC: LAB.N 14:32
PROVIDERS: ATTEND Physician Assistant Medical
DX: I10 Essential (primary) hypertension (principal); Z13.220 Encounter for screening for lipoid disorders; Z13.29 Encounter for screening for other suspected endocrine disorder
CPT/HCPCS: 36415; 80053; 80061; 83721; 84443; 85025

== ENCOUNTER 2023-06-27 16:23 | Outpatient (CLI) | payer OTHER ==
--- NOTE | 2023-06-27 20:25 | XRAY Report ---
PROCEDURE: Hips w/Pelvis 2-3V BL INDICATIONS: HIP PAIN,LEFT TECHNIQUE: AP view the pelvis and lateral views of the right and left hips COMPARISON: CT abdomen/pelvis 02/14/2016 FINDINGS: Bones: No fractures or dislocations. No suspicious bony lesions. The visualized pelvic ring appear s intact. Mild degenerative changes in the hips bilaterally as well as the pubic symphysis. Minimal degenerative changes in the spine. Soft tissues: No suspicious soft tissue calcifications or masses. 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 Reviewed by: Sage Torres MD on 06/27/2023 8:24 PM PST Approved by: Sage Torres MD on 06/27/2023 8:24 PM PST Station ID: [id number]
--- NOTE | 2023-06-27 20:29 | XRAY Report ---
PROCEDURE: Knee 3V BL INDICATIONS: LEG PAIN,RIGHT TECHNIQUE: 3 views of both knees were acquired. COMPARISON: Bilateral knee radiographs 01/06/2020 FINDINGS: Bones: No acute fractures or dislocations. No suspicious bony lesions. Mild joint space narrowing is seen at the medial femorotibial compartments bilaterally. The lateral and anterior compartment caitie int spaces are well-maintained. Findings do not appear significantly changed compared to the radiogra phs from 01/06/2020. Soft tissues: No knee joint effusion. No suspicious soft tissue calcifications. IMPRESSION: Mild bilateral medial compartment osteoarthrosis. Reviewed by: Sage Torres MD on 06/27/2023 8:28 PM PST Approved by: Sage Torres MD on 06/27/2023 8:28 PM PST Station ID: [id number]
== END 2023-06-27 16:24 | disposition home or self-care (01) ==
LOC: DI 16:23
PROVIDERS: ATTEND Physician Assistant Medical
DX: M79.604 Pain in right leg (principal); M17.0 Bilateral primary osteoarthritis of knee; M16.0 Bilateral primary osteoarthritis of hip; M19.09 Primary osteoarthritis, other specified site

== ENCOUNTER 2023-07-04 15:43 | Emergency (ER) | payer OTHER ==
--- NOTE | 2023-07-04 16:14 | XRAY Report ---
PROCEDURE: Chest 1V INDICATIONS: Chest pain TECHNIQUE: One view of the chest was acquired. COMPARISON: None. FINDINGS: Surgical changes and devices: None. Lungs and pleura: No pleural effusions or pneumothorax. Lungs are clear. Mediastinum: Mediastinal contours appear normal. Heart size is normal. Bones and chest wall: No suspicious bony lesions. Overlying soft tissues appear unremarkable. IMPRESSION: No acute cardiopulmonary process. Reviewed by: Chico Sims MD on 07/04/2023 4:12 PM PST Approved by: Chico Sims MD on 07/04/2023 4:12 PM PST Station ID: [id number]
[2023-07-04 16:17] LABS: BASOPHILS % (AUTO) 0.5 %; EOSINOPHILS # (AUTO) 0.2 10^3/uL (0.0-0.7); EOSINOPHILS % (AUTO) 1.8 %; HCT - HEMATOCRIT 42.3 % (37.0-47.0); HGB - HEMOGLOBIN 13.5 g/dL (12.0-16.0); LYMPHOCYTES # (AUTO) 2.8 10^3/uL (1.5-3.5); LYMPHOCYTES % (AUTO) 33.2 %; MEAN CORPUSCULAR HGB CONC 31.9 g/dL (32.0-36.0); MEAN CORPUSCULAR VOLUME 87.8 fL (81.0-99.0); MEAN PLATELET VOLUME 9.4 fL (7.9-10.8); MONOCYTES # (AUTO) 0.6 10^3/uL (0.0-1.0); MONOCYTES % (AUTO) 7.1 %; NEUTROPHILS # (AUTO) 4.8 10^3/uL (1.5-6.6); PLT - PLATELET COUNT 275 10^3/uL (130-450); RED BLOOD COUNT 4.82 10^6/uL (4.20-5.40); WHITE BLOOD COUNT 8.5 x10^3/uL (4.8-10.8)
--- NOTE | 2023-07-04 16:28 | ED Physician Documentation ---
PD HPI CHEST PAIN - Stated complaint Stated Complaint: CHEST PX/SOA/LIGHT HEADED - Chief complaint Chief Complaint: Cardiac - Additional information Additional information: 63-year-old female with history of PVCs hypercholesterolemia presents emergency department today for chest pain. 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 She says shortly after this she started to experienceDizziness with some chest pain that radiated to her left shoulder blade. 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 : None HEENT: None Psych: Anxiety, Panic attacks, Post traumatic stress disorder Musculoskeletal: None Derm: None - Past Surgical History Past Surgical History: Yes General: Appendectomy - Present Medications Home Medications: Ambulatory Orders Medication Instructions Recorded Confirmed ALPRAZolam [Alprazolam] 1 tab PO DAILY 08/06/14 01/20/21 Aspirin 81 mg PO DAILY 08/06/14 01/20/21 Fluticasone [Flonase] 1 sprays FRIEDA DAILY 08/06/14 01/20/21 Krill/[place]-3/Dha/Epa/Lipids 1 each PO DAILY 08/06/14 01/20/21 [Krill Oil 300 mg Softgel] Acyclovir [Zovirax] 800 mg PO 5XD #50 tablet 04/18/18 01/20/21 - Allergies Allergies/Adverse Reactions: Allergies Allergy/AdvReac Type Severity Reaction Status Date / Time Penicillins Allergy Unknown Verified 07/04/23 15:46 - Social History Does the pt smoke?: No Smoking Status: Never smoker Does the pt drink ETOH?: No Does the pt have substance abuse?: No - Immunizations Immunizations are current?: Yes - POLST Patient has POLST: No PD ED PE NORMAL - Vitals Vital signs reviewed: Yes - General General: Alert and oriented X 3, No acute distress, Well developed/nourished - HEENT HEENT: Atraumatic - Neck Neck: Supple, no meningeal sign, No JVD - Cardiac Cardiac: RRR, No murmur, No gallop, Strong equal pulses - Respiratory Respiratory: No respiratory distress - Abdomen Abdomen: Normal bowel sounds, Non tender - Derm Derm: Normal color, No rash - Extremities Extremities: No edema - Neuro Neuro: Alert and oriented X 3, it operations analyst 2-12 intact, No motor deficit, No sensory deficit, Normal speech Eye Opening: Spontaneous Motor: Obeys Commands Verbal: Oriented GCS Score: 15 - Psych Psych: Normal mood Results - Vitals Vitals: Vital Signs - 24 hr 07/04/23 07/04/23 07/04/23 15:46 16:30 16:56 Temperature 36.8 C Heart Rate 100 91 94 Respiratory 16 16 16 Rate Blood Pressure 180/89 H 143/79 H 143/79 H O2 Saturation 100 96 98 07/04/23 07/04/23 17:30 19:00 Temperature 36.8 C Heart Rate 90 88 Respiratory 16 16 Rate Blood Pressure 121/82 H 120/84 H O2 Saturation 98 98 Oxygen O2 Source Room air - EKG (time done) 1612 EKG releavant findings:: EKG personally interpreted by author of this note. Relevant findings are: Rate: Rate (enter#) (94) Rhythm: NSR [place]: LAD Intervals: Normal [place] QRS: Normal Ischemia: Normal ST segments Computer interpretation: Agree with computer - Labs Labs: Laboratory Tests 07/04/23 07/04/23 07/04/23 16:10 16:10 16:10 WBC 8.5 RBC 4.82 Hgb 13.5 Hct 42.3 MCV 87.8 MCH 28.0 MCHC 31.9 L RDW 12.0 Plt Count 275 MPV 9.4 Neut # (Auto) 4.8 Lymph # (Auto) 2.8 [place] # (Auto) 0.6 Eos # (Auto) 0.2 Baso # (Auto) 0.0 Absolute Nucleated RBC 0.00 Nucleated RBC % 0.0 Sodium 137 Potassium 4.0 Chloride 103 Carbon Dioxide 27 Anion Gap 7.0 BUN 17 Creatinine 0.7 Estimated GFR (MDRD) 85 L Glucose 120 H Calcium 9.8 Magnesium 2.0 Total Bilirubin 0.4 AST 20 ALT 19 Alkaline Phosphatase 108 Troponin I High Sens 3.4 Total Protein 8.0 Albumin 4.9 Globulin 3.1 Albumin/Globulin Ratio 1.6 Lipase 28 07/04/23 18:29 WBC RBC Hgb Hct MCV MCH MCHC RDW Plt Count MPV Neut # (Auto) Lymph # (Auto) [place] # (Auto) Eos # (Auto) Baso # (Auto) Absolute Nucleated RBC Nucleated RBC % Sodium Potassium Chloride Carbon Dioxide Anion Gap BUN Creatinine Estimated GFR (MDRD) Glucose Calcium Magnesium Total Bilirubin AST ALT Alkaline Phosphatase Troponin I High Sens 5.9 Total Protein Albumin Globulin Albumin/Globulin Ratio Lipase - Rads (name of study) chest Xray Relevant Findings:: Final report received, EMP independent interpretation of test (No cardiopulmonary abnormalities ) PD Medical Decision Making - ED course ED course: Exam without evidence of volume overload so doubt heart failure. EKG without signs of active ischemia. Given the timing of pain to ER presentation, delta troponin was negative so doubt NSTEMI. Presentation not consistent with acute PE (Wells low risk),pneumothorax (not visualized on chest xr), thoracic aortic dissection, pericarditis, tamponade, pneumonia (no infectious symptoms, clear chest xr), myocarditis (no recent illness, neg trop). HEART score:3 points so plan to discharge patient home with PCP follow up. Pts symptoms have fully resolved. Labs complete, CBC overall unremarkable no leukocytosis no anemia, chemistry also is overall unremarkable, potassium 4.0, magnesium 2.0, troponins are also complete x 2, no elevation greater than 7 over 2-hour period. Lipase also found to be within normal limits. Pt told to follow up with her PCP and she was given strict ER return precautions. Departure - Departure Disposition: 01 Home, Self Care Clinical Impression: Chest pain Qualifiers: Chest pain type: unspecified Qualified Code(s): R07.9 - Chest pain, unspecified Condition: Good Instructions: ED Chest Pain Atypical Unkn Cause Comments: Thank you for trusting us with your care we have completed labs as well as a chest x-ray and an EKG and none of them are showing any acute findings of cardiac abnormalities. As we discussed please follow-up with your primary care provider let them know about this ER visit. Please come back to the ER if the chest pain comes back, if you start to develop any dizziness, shortness of breath, or any other concerning symptoms. Forms: PCP List Discharge Date/Time: 07/04/23 19:30
[2023-07-04 16:34] LABS: ALBUMIN 4.9 g/dL (3.2-5.5); ALBUMIN/GLOBULIN RATIO 1.6 (1.0-2.2); BILIRUBIN,TOTAL 0.4 mg/dL (0.2-1.0); CALCIUM 9.8 mg/dL (8.5-10.3); CREATININE 0.7 mg/dL (0.6-1.3)
[2023-07-04 16:40] LABS: TROPONIN I HIGH SENSITIVITY 3.4 ng/L (2.3-14.8)
[2023-07-04 16:59] VITALS: O2SAT 98
[2023-07-04 19:24] VITALS: BP 120/84
== END 2023-07-04 19:30 | disposition home or self-care (01) ==
LOC: ED 15:43
DX: R07.9 Chest pain, unspecified (principal)
CPT/HCPCS: 36415; 80053; 83690; 83735; 84484; 85025; 93005; 99284

== ENCOUNTER 2023-07-24 08:00 | Outpatient (CLI) | payer OTHER ==
[2023-07-24 14:11] LABS: BACTERIAL VAGINOSIS DNA NEGATIVE (NEGATIVE); CANDIDA GLABRATA DNA NEGATIVE (NEGATIVE); CANDIDA GROUP DNA NEGATIVE (NEGATIVE); CANDIDA KRUSEI DNA NEGATIVE (NEGATIVE); TRICHOMONAS VAGINALIS DNA NEGATIVE (NEGATIVE)
== END 2023-07-24 23:59 | disposition home or self-care (01) ==
LOC: LAB.WCP 08:00
PROVIDERS: ATTEND Physician Assistant
DX: N89.8 Other specified noninflammatory disorders of vagina (principal); L30.4 Erythema intertrigo; B37.2 Candidiasis of skin and nail
CPT/HCPCS: 81514

== ENCOUNTER 2023-09-14 17:28 | Observation (INO) | payer OTHER ==
--- NOTE | 2023-09-14 18:02 | ED Physician Documentation ---
PD HPI ABD PAIN - Stated complaint Stated Complaint: ABD PRESSURE,NAUSEA - Chief complaint Chief Complaint: Abd Pain - History obtained from History obtained from: Patient - Additional information Additional information: She has a history of recurrent diverticulitis. Starting almost a month ago she developed upper abdominal pain which transitioned into the left lower abdomen consistent with prior episodes of diverticulitis. She was seen at the walk-in clinic a week ago and put on Cipro and Flagyl noting a penicillin allergy and has not improved. 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 HEENT: None Psych: Anxiety, Panic attacks, Post traumatic stress disorder Musculoskeletal: None Derm: None - Past Surgical History Past Surgical History: Yes General: Appendectomy - Present Medications Home Medications: Ambulatory Orders Medication Instructions Recorded Confirmed ALPRAZolam [Alprazolam] 1 tab PO DAILY 08/06/14 01/20/21 Aspirin 81 mg PO DAILY 08/06/14 01/20/21 Fluticasone [Flonase] 1 sprays FRIEDA DAILY 08/06/14 01/20/21 Krill/[place]-3/Dha/Epa/Lipids 1 each PO DAILY 08/06/14 01/20/21 [Krill Oil 300 mg Softgel] Acyclovir [Zovirax] 800 mg PO 5XD #50 tablet 04/18/18 01/20/21 - Allergies Allergies/Adverse Reactions: Allergies Allergy/AdvReac Type Severity Reaction Status Date / Time adhesive Allergy Hives Verified 09/14/23 17:45 Penicillins Allergy Unknown Verified 09/14/23 17:45 - Social History Does the pt smoke?: No Smoking Status: Never smoker Does the pt drink ETOH?: No Does the pt have substance abuse?: No - Immunizations Immunizations are current?: Yes - POLST Patient has POLST: No PD ED PE NORMAL - Vitals Vital signs reviewed: Yes - General General: Alert and oriented X 3, No acute distress - Cardiac Cardiac: RRR, No murmur - Respiratory Respiratory: No respiratory distress, Clear bilaterally - Abdomen Abdomen: Other (Mild tenderness in the left lower quadrant without surgical signs, There is mild rebound tenderness in the left lower quadrant as well.) - Neuro Neuro: Alert and oriented X 3 Results - Vitals Vitals: Vital Signs - 24 hr 09/14/23 09/14/23 17:40 19:45 Temperature 36.7 C 36.4 C L Heart Rate 76 78 Respiratory 16 16 Rate Blood Pressure 125/81 H 122/77 O2 Saturation 98 97 Oxygen O2 Source Room air - Labs Labs: Laboratory Tests 09/14/23 09/14/23 09/14/23 16:10 16:10 17:52 WBC 13.1 H RBC 4.38 Hgb 12.2 Hct 38.3 MCV 87.4 MCH 27.9 MCHC 31.9 L RDW 12.4 Plt Count 344 MPV 9.6 Neut # (Auto) 9.6 H Lymph # (Auto) 2.2 [place] # (Auto) 1.1 H Eos # (Auto) 0.2 Baso # (Auto) 0.1 Absolute Nucleated RBC 0.00 Nucleated RBC % 0.0 Sodium 137 Potassium 3.9 Chloride 104 Carbon Dioxide 25 Anion Gap 8.0 BUN 15 Creatinine 0.7 Estimated GFR (MDRD) 85 L Glucose 92 Calcium 9.7 Total Bilirubin 0.5 AST 23 ALT 25 Alkaline Phosphatase 82 Total Protein 7.1 Albumin 4.3 Globulin 2.8 Albumin/Globulin Ratio 1.5 Lipase 49 Urine Color DARK YELLOW Urine Clarity SL. CLOUDY Urine pH 5.0 Ur Specific [place] >=1.030 H Urine Protein NEGATIVE Urine Glucose (UA) NEGATIVE Urine Ketones NEGATIVE Urine Occult Blood LARGE H Urine Nitrite NEGATIVE Urine Bilirubin NEGATIVE Urine Urobilinogen 0.2 (NORMAL) Ur Leukocyte Esterase TRACE H Urine RBC TNTC H Urine WBC 4-5 Ur Squamous Epith Cells FEW Squamous Urine Bacteria Rare Urine Mucus Few Strands Ur Microscopic Review INDICATED Urine Culture Comments INDICATED PD Medical Decision Making - ED course ED course: 63-year-old woman with history of recurrent diverticulitis presents with apparent flare of same not improving after a weeks worth of outpatient antibiotics. She states that she has had a broad-spectrum penicillin-based antibiotic as an IV before without issue despite the allergy to penicillin but does not tolerate oral Augmentin with a side effect of itching. Workup in the emergency department demonstrated a white count of 13,000, unremarkable chemistries, and blood in her urine. I did discuss the blood in her urine with her and recommended recheck urinalysis after diverticulitis flare had resolved positing that potentially the proximity of her diverticular infection to the urinary bladder may be inflaming the bladder wall and causing said hematuria, but needs rechecked when better to confirm no need for cystoscopy etc. She received a dose of IV Zosyn here and CT imaging demonstrates uncomplicated but still persistent significant diverticulitis. We discussed inpatient versus outpatient treatment and patient opted for the former. that is not unreasonable given the persistent white count. Spoke with telehealth hospitalist for admission at 8:30 PM. Departure - Departure Disposition: [facility] DC/Xfer Clinical Impression: Diverticulitis of gastrointestinal tract, Failure of outpatient treatment Hematuria Qualifiers: Hematuria type: unspecified type Qualified Code(s): R31.9 - Hematuria, unspecified Condition: Stable Forms: PCP List
[2023-09-14 18:12] LABS: BILIRUBIN,URINE NEGATIVE (NEGATIVE); GLUCOSE, URINE (UA) NEGATIVE (NEGATIVE); KETONES,URINE (UA) NEGATIVE (NEGATIVE); LEUKOCYTE ESTERASE, URINE TRACE (NEGATIVE); NITRITE,URINE NEGATIVE (NEGATIVE); OCCULT BLOOD,URINE LARGE (NEGATIVE); PROTEIN,URINE NEGATIVE (NEGATIVE); UROBILINOGEN,URINE 0.2 (NORMAL) E.U./dL (NORMAL)
[2023-09-14 18:13] LABS: CLARITY,URINE SL. CLOUDY (CLEAR)
[2023-09-14 18:16] LABS: BASOPHILS # (AUTO) 0.1 10^3/uL (0.0-0.1); BASOPHILS % (AUTO) 0.4 %; EOSINOPHILS # (AUTO) 0.2 10^3/uL (0.0-0.7); EOSINOPHILS % (AUTO) 1.1 %; HCT - HEMATOCRIT 38.3 % (37.0-47.0); HGB - HEMOGLOBIN 12.2 g/dL (12.0-16.0); LYMPHOCYTES # (AUTO) 2.2 10^3/uL (1.5-3.5); MEAN CORPUSCULAR HEMOGLOBIN 27.9 pg (27.0-31.0); MEAN CORPUSCULAR HGB CONC 31.9 g/dL (32.0-36.0); MEAN CORPUSCULAR VOLUME 87.4 fL (81.0-99.0); MEAN PLATELET VOLUME 9.6 fL (7.9-10.8); MONOCYTES # (AUTO) 1.1 10^3/uL (0.0-1.0); NEUTROPHILS # (AUTO) 9.6 10^3/uL (1.5-6.6); NEUTROPHILS % (AUTO) 73.2 %; PLT - PLATELET COUNT 344 10^3/uL (130-450); RED BLOOD COUNT 4.38 10^6/uL (4.20-5.40); RED CELL DISTRIBUTION WIDTH 12.4 % (12.0-15.0); WHITE BLOOD COUNT 13.1 x10^3/uL (4.8-10.8)
[2023-09-14 18:19] LABS: BACTERIA,URINE Rare /HPF (None Seen); MUCUS,URINE Few Strands; RBC,URINE TNTC /HPF (0-5); SQUAMOUS EPITHELIAL CELL,UR FEW Squamous (<= Few)
[2023-09-14 18:30] LABS: ALBUMIN 4.3 g/dL (3.2-5.5); ALBUMIN/GLOBULIN RATIO 1.5 (1.0-2.2); BILIRUBIN,TOTAL 0.5 mg/dL (0.2-1.0); CALCIUM 9.7 mg/dL (8.5-10.3); CREATININE 0.7 mg/dL (0.6-1.3); POTASSIUM 3.9 mmol/L (3.5-4.5); TOTAL PROTEIN 7.1 g/dL (6.4-8.9)
[2023-09-14] MEDS ORDERED: iohexoL-300 100 ML VIAL ONE (18:31)
[2023-09-14] MEDS: iohexoL-300 100 ML VIAL IVP ONE (19:01)
--- NOTE | 2023-09-14 19:03 | CT Report ---
PROCEDURE: Abdomen/Pelvis W INDICATIONS: iv only , llq pain CONTRAST: 100ml omni 300 TECHNIQUE: After the administration of intravenous contrast, a CT scan of the abdomen and pelvis was performed. Images were recorded and evaluated at appropriate window settings. Reformats: coronal and sagittal. F or radiation dose reduction, the following was used: automated exposure control, adjustment of mA and /or kV according to patient size. COMPARISON: 02/14/2016 FINDINGS: Image quality: Diagnostic. Lower chest: Unremarkable. Liver: No solid mass. Gallbladder and biliary tree: Within normal limits. Spleen: No splenomegaly. Pancreas: No pancreatic ductal dilation. Adrenals: No adrenal nodule. Kidneys and ureters: No hydronephrosis. No renal cystic lesion which requires follow up. No solid mas s. Stomach, bowel and peritoneum: Bladder wall thickening can be seen involving the sigmoid colon, with moderate surrounding inflammatory change. There is thickening of the adjacent fascial planes. Moderat e diverticula formation can be seen within this region. No significant free fluid can be seen. No eli e air is seen. No associated abscess is seen. The more proximal colon is within normal limits. No dilated loops of small bowel are seen. The stomach is relatively decompressed at the time of this study, limiting its evaluation. Lymph nodes: No central or retroperitoneal adenopathy. Vessels: No infrarenal aortic aneurysm. PELVIS Reproductive organs: The uterus demonstrates an unremarkable appearance for age. No adnexal masses ar e seen. Bladder: No abnormal wall thickening, accounting for underdistention. Pelvic lymph nodes: No pelvic adenopathy by size criteria. Bones: No aggressive osseous abnormality. Focal L5-S1 degenerative change is seen. Milder degenerativ e changes are seen elsewhere. Other: No significant ventral or inguinal hernia. IMPRESSION: Moderate sigmoid diverticulitis, without findings of perforation or abscess. A colonoscopy is recommended for further evaluation, following treatment of the patient's current cli nical episode, for evaluation of a potential underlying mass. Additional findings: Focal L5-S1 degenerative change Reviewed by: Sergio Arreguin MD on 09/14/2023 6:02 PM [facility] Approved by: Sergio Arreguin MD on 09/14/2023 6:02 PM [facility] Station ID: [id number]
[2023-09-14] MEDS: PIPERACILLIN/TAZOBACTAM 3.375 GM in SODIUM CHLORIDE 0.9% MINIBAG 100 ML IV STA (19:42)
--- NOTE | 2023-09-14 20:35 | HISTORY & PHYSICAL EXAMINATION ---
Chief Complaint - Chief Complaint Chief Complaint: LLQ abdominal patient History of Present Illness - Admitted From Admitted From:: ED - History Obtained From Records Reviewed: EMR History obtained from: Patient and Exam Limitations: Tele medicine. equipment not working. - History of Present Illness HPI Comment/Other: started a month ago. started as epigastric abdominal pain. had decrease po intake and diarrhea. no bleed. no vomiting. worsening pain a week ago. past week, pain migrated LLQ. decrease po intake and went on liquid. pain worse with bowel movement. bloated. nausea. patient went to urgent and dx with d iverticulitis. patient started on cipro and Flagyl and naproxen. finished abx but pain has gotten worse. pain 10/10. no overt fever. no chills. no chest pain. no SOB. no palpitation. no dysuria. No rash. no new medication. no trauma. no travel. CT imaging support dx of diverticulitis. 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 : reports: None HEENT: reports: None Psych: reports: Anxiety, Panic attacks, Post traumatic stress disorder Musculoskeletal: reports: None Derm: reports: None MRSA Hx?: No - Past Surgical History General: reports: Appendectomy - POLST Patient has POLST: No Meds/Allgy - Home Medications Home Medications: Ambulatory Orders Medication Instructions Recorded Confirmed ALPRAZolam [Alprazolam] 1 tab PO DAILY 08/06/14 01/20/21 Aspirin 81 mg PO DAILY 08/06/14 01/20/21 Fluticasone [Flonase] 1 sprays FRIEDA DAILY 08/06/14 01/20/21 Krill/[place]-3/Dha/Epa/Lipids 1 each PO DAILY 08/06/14 01/20/21 [Krill Oil 300 mg Softgel] Acyclovir [Zovirax] 800 mg PO 5XD #50 tablet 04/18/18 01/20/21 - Allergies Allergies/Adverse Reactions: Allergies Allergy/AdvReac Type Severity Reaction Status Date / Time adhesive Allergy Hives Verified 09/14/23 17:45 Penicillins Allergy Unknown Verified 09/14/23 17:45 Review of Systems - Other Findings Other Findings: negative unless mentioned differently. Exam - Vital Signs Vital Signs: Vital Signs x48h Temp Pulse Resp BP Pulse Ox 09/14/23 19:45 36.4 C L 78 16 122/77 97 09/14/23 17:40 36.7 C 76 16 125/81 H 98 - Physical Exam General Appearance: positive: No acute distress, Alert Respiratory: positive: No respiratory distress, Breath sounds nml Cardiovascular: positive: Regular rate & rhythm Abdomen: positive: Tenderness (LLQ). negative: Mass Conclusion/Plan - Problem List (1) Diverticulitis of gastrointestinal tract Conclusion/Plan: failed outpatient abx. will opt to treat c iv abx ceftriaxone and Flagyl. antiemetic. clear. pain control. reassess in am - Lab Results Lab results reviewed: Yes Fish Bones: 09/14/23 16:10 09/14/23 16:10 - Diagnostic Imaging Results Diagnostic Imaging Results: positive: Final report reviewed Diagnostic Imaging Results Comments: reviewed Core Measures - Anticipated LOS I expect patient to be DC'd or transferred within 96 hours.: Yes - Issues Hospital Issues and Management Plan: The patient consented to receive this telemedicine service, which I performed via live two-way audiovisual equipment. The patient is at ([facility]) and I am physically in [facility]. A nurse assisted me in the visit. - DVT/VTE - Prophylaxis VTE/DVT Device ordered at admit?: Yes Telemedicine Consult Details - Provider Location & Consult Time Telemedicine consultation conducted via videoconferencing?: Yes List names and roles of persons who participated in consult:: patient, RN, ED staff Telemedicine provider location:: [facility] Time Telemedicine consult began:: 20:26 Time Telemedicine consult completed:: 21:26
[2023-09-14] MEDS ORDERED: ONDANSETRON 4 MG/2 ML VIAL IVP PRN (20:53)
[2023-09-14] MEDS ORDERED: SODIUM CHLORIDE FLUSH 0.9% 10 ML SYRINGE IVP PRN (20:53)
[2023-09-14] MEDS ORDERED: PROCHLORPERAZINE 10 MG/2 ML VIAL IVP PRN (20:53)
[2023-09-14] MEDS ORDERED: ALPRAZolam 0.25 MG TABLET PO PRN (20:58)
[2023-09-14] MEDS: SODIUM CHLORIDE 0.9% 1,000 ML IV SCH (21:31)
[2023-09-14] MEDS: cefTRIAXone 2 GM in SODIUM CHLORIDE 0.9% MINIBAG 100 ML IV SCH (21:42)
[2023-09-14] MEDS: HYDROcod/ACETAM 5/325 MG TABLET PO PRN (21:46)
[2023-09-14] MEDS: metroNIDAZOLE 500 MG/100 ML 500 MG/100 ML BAG IV SCH (22:24)
[2023-09-14] MEDS: SODIUM CHLORIDE FLUSH 0.9% 10 ML SYRINGE IVP SCH (23:16)
[2023-09-15] MEDS: FLUTICASONE NASAL SPRAY NAS SCH (08:55)
[2023-09-15] MEDS: ASPIRIN CHEW 81 MG TABLET PO SCH (08:55)
--- NOTE | 2023-09-15 10:14 | PROVIDER PROGRESS NOTE ---
Subjective - Prog Note Date Prog Note Date: 09/15/23 Prog Note Time: 10:11 - Subjective Pt reports feeling: Improved (Pain is down to 4/10 at LLQ.) Subjective: The pt reports that her LLQ pain is better since admission but it gets worse when she eats. No acute overnight events. No other related symptoms. No other modifying factors. Objective - Vital Signs/Intake & Output Reviewed Vital Signs: Yes Vital Signs: Vital Signs x48h Temp Pulse Resp BP Pulse Ox 09/15/23 07:32 36.8 C 79 18 104/77 95 09/15/23 05:14 36.7 C 72 16 130/79 97 Intake & Output: Intake & Output 09/12/23 09/13/23 09/14/23 09/15/23 23:59 23:59 23:59 23:59 Intake Total 411.667 340 Balance 411.667 340 - Objective General Appearance: positive: No acute distress Eyes Bilateral: positive: Normal inspection, EOMI Neck: positive: Nml inspection, No JVD Respiratory: positive: Chest non-tender, No respiratory distress, Breath sounds nml Cardiovascular: positive: Regular rate & rhythm, No murmur Abdomen: positive: Nml bowel sounds, Tenderness (at LLQ) Skin: positive: Color nml, No rash, Warm Extremities: positive: Non-tender, Full ROM, Nml appearance, No pedal edema Neurologic/Psychiatric: positive: Oriented x3, Mood/affect nml - Lab Results Fish Bones: 09/14/23 16:10 09/14/23 16:10 Other Labs: Lab Results x24hrs 09/14/23 09/14/23 09/14/23 Range/Units 17:52 16:10 16:10 WBC 13.1 H (4.8-10.8) x10^3/uL RBC 4.38 (4.20-5.40) 10^6/uL Hgb 12.2 (12.0-16.0) g/dL Hct 38.3 (37.0-47.0) % MCV 87.4 (81.0-99.0) fL MCH 27.9 (27.0-31.0) pg MCHC 31.9 L (32.0-36.0) g/dL RDW 12.4 (12.0-15.0) % Plt Count 344 (130-450) 10^3/uL MPV 9.6 (7.9-10.8) fL Neut # (Auto) 9.6 H (1.5-6.6) 10^3/uL Lymph # (Auto) 2.2 (1.5-3.5) 10^3/uL [place] # (Auto) 1.1 H (0.0-1.0) 10^3/uL Eos # (Auto) 0.2 (0.0-0.7) 10^3/uL Baso # (Auto) 0.1 (0.0-0.1) 10^3/uL Absolute Nucleated RBC 0.00 x10^3/uL Nucleated RBC % 0.0 /100WBC Sodium 137 (135-145) mmol/L Potassium 3.9 (3.5-4.5) mmol/L Chloride 104 (101-111) mmol/L Carbon Dioxide 25 (21-32) mmol/L Anion Gap 8.0 (6-13) BUN 15 (6-20) mg/dL Creatinine 0.7 (0.6-1.3) mg/dL Estimated GFR (MDRD) 85 L (>89) Glucose 92 (74-104) mg/dL Calcium 9.7 (8.5-10.3) mg/dL Total Bilirubin 0.5 (0.2-1.0) mg/dL AST 23 (10-42) IU/L ALT 25 (10-60) IU/L Alkaline Phosphatase 82 (42-121) IU/L Total Protein 7.1 (6.4-8.9) g/dL Albumin 4.3 (3.2-5.5) g/dL Globulin 2.8 (2.1-4.2) g/dL Albumin/Globulin Ratio 1.5 (1.0-2.2) Lipase 49 (11-82) U/L Urine Color DARK YELLOW Urine Clarity SL. CLOUDY (CLEAR) Urine pH 5.0 (5.0-7.5) PH Ur Specific [place] >=1.030 H (1.002-1.030) Urine Protein NEGATIVE (NEGATIVE) mg/dL Urine Glucose (UA) NEGATIVE (NEGATIVE) mg/dL Urine Ketones NEGATIVE (NEGATIVE) mg/dL Urine Occult Blood LARGE H (NEGATIVE) Urine Nitrite NEGATIVE (NEGATIVE) Urine Bilirubin NEGATIVE (NEGATIVE) Urine Urobilinogen 0.2 (NORMAL) (NORMAL) E.U./dL Ur Leukocyte Esterase TRACE H (NEGATIVE) Urine RBC TNTC H (0-5) /HPF Urine WBC 4-5 (0-5) /HPF Ur Squamous Epith Cells FEW Squamous (<= Few) Urine Bacteria Rare (None Seen) /HPF Urine Mucus Few Strands Ur Microscopic Review INDICATED Urine Culture Comments INDICATED - Diagnostic Imaging Diagnostic Imaging Results: positive: Final report reviewed ABX Reporting Has patient been on IV antibiotics over the past 48 hours?: Yes Assessment/Plan - Problem List (1) Diverticulitis of gastrointestinal tract Impression: Failed outpt PO abx. Will continue with IV ceftriaxone and flagyl. Pain control. Continue with clears for now and advance diet to full liquid if she can tolerate. Repeat CBC in am. (2) Dehydration Impression: IVF and repeat BMP in am.
[2023-09-15] MEDS: SODIUM CHLORIDE 0.9% 1,000 ML IV SCH (11:00)
--- NOTE | 2023-09-15 12:20 | PHARMACY PROGRESS NOTE ---
- Best Possible Medication History Admit Date and Time: 09/14/232052 Processed by: Pharmacy Medication History completed: Yes Patient Interview: Completed Secondary Source(s): Pharmacy records, Insurance records As the person ultimately responsible for medication therapy, providers are able to order a medication from an existing home medication list in [facility] via the "Reconcile Routine" prior to Confirmation of that medication by application support technician. Such practice is discouraged except when the physician, in their clinical judgment, deems that a medical need exists for a medication without regard to previous use.
[2023-09-15] MEDS: ACETAMINOPHEN 325 MG TABLET PO PRN (15:43)
[2023-09-16 06:15] LABS: BASOPHILS % (AUTO) 0.3 %; EOSINOPHILS # (AUTO) 0.1 10^3/uL (0.0-0.7); EOSINOPHILS % (AUTO) 2.2 %; HCT - HEMATOCRIT 33.5 % (37.0-47.0); HGB - HEMOGLOBIN 10.5 g/dL (12.0-16.0); LYMPHOCYTES # (AUTO) 1.8 10^3/uL (1.5-3.5); LYMPHOCYTES % (AUTO) 29.5 %; MEAN CORPUSCULAR HEMOGLOBIN 27.6 pg (27.0-31.0); MEAN CORPUSCULAR HGB CONC 31.3 g/dL (32.0-36.0); MEAN CORPUSCULAR VOLUME 88.2 fL (81.0-99.0); MEAN PLATELET VOLUME 9.6 fL (7.9-10.8); MONOCYTES # (AUTO) 0.6 10^3/uL (0.0-1.0); MONOCYTES % (AUTO) 9.1 %; NEUTROPHILS # (AUTO) 3.5 10^3/uL (1.5-6.6); NEUTROPHILS % (AUTO) 58.7 %; PLT - PLATELET COUNT 283 10^3/uL (130-450); RED CELL DISTRIBUTION WIDTH 12.5 % (12.0-15.0)
[2023-09-16 06:28] LABS: CALCIUM 8.8 mg/dL (8.5-10.3); CREATININE 0.7 mg/dL (0.6-1.3); POTASSIUM 3.5 mmol/L (3.5-4.5)
--- NOTE | 2023-09-16 07:41 | Discharge Plan ---
Discharge Plan Problem Reviewed?: Yes Disposition: Home, Self Care Condition: Stable Prescriptions: Amox/Clav 875/125 [Augmentin 875/125 Tab] 1 tablet PO Q12H 7 Days #14 tablet Diet: Regular (Stay with full liquid diet for 2 days and then advance diet as tolerated) Activity Restrictions: No Restrictions Shower Restrictions: No Driving Restrictions: No Weight Bearing: Full Weight Instruction Topics: Diverticulosis Diverticulitis Plan of Treatment: Take augmentin 7 more days starting tomorrow. No Smoking: If you smoke, Please STOP! Call for help. Follow-up with: Yudi Martinez PA-C [Primary Care Provider] - 1 Week
--- NOTE | 2023-09-16 07:44 | DISCHARGE SUMMARY ---
"Discharge Summary Admit Date: 09/14/23 Discharge Date: 09/16/23 Discharging Provider: Linh Gray Primary Care Provider: Yudi Martinez Code Status: Attempt Resuscitation Condition at Discharge: Stable Discharge Disposition: 01 Home, Self Care - DIAGNOSES Admission Diagnoses: Acute diverticulitis Discharge Diagnoses with Status of Each Condition: Acute diverticulitis: Improving - HPI History of Present Illness: Per admitting H&P, started a month ago. started as epigastric abdominal pain. had decrease po intake and diarrhea. no bleed. no vomiting. worsening pain a week ago. past week, pain migrated LLQ. decrease po intake and went on liquid. pain worse with bowel movement. bloated. nausea. patient went to urgent and dx with diverticulitis. patient started on cipro and Flagyl and naproxen. finished abx but pain has gotten worse. pain 10/10. no overt fever. no chills. no chest pain. no SOB. no palpitation. no dysuria. No rash. no new medication. no trauma. no travel. CT imaging support dx of diverticulitis. - CONSULTS | PROCEDURES Consultations: None Procedures: None - HOSPITAL COURSE Hospital Course: Upon admission she was put on ceftriaxone and flagyl. She was also put on clear liquid diet. The pt improved clinically and she tolerated full liquid diet. Upon discharge she will take Augmentin 7 more days starting tomorrow since she doesn't like the taste of flagyl. She will need to follow up with PCP in 1 week and she will need to have a referral to GI. - ALLERGIES Allergies/Adverse Reactions: Allergies Allergy/AdvReac Type Severity Reaction Status Date / Time adhesive Allergy Hives Verified 09/14/23 17:45 Penicillins Allergy Unknown Verified 09/14/23 17:45 - MEDICATIONS Home Medications: Ambulatory Orders Medication Instructions Recorded Confirmed Aspirin 81 mg PO DAILY 08/06/14 09/15/23 Fluticasone [Flonase] 1 sprays FRIEDA BID 08/06/14 09/15/23 Ascorbic Acid/Ascorbate Sodium 500 mg PO DAILY 09/15/23 09/15/23 [Vitamin C 500 mg Tablet Chew] Cholecalciferol (Vitamin D3) 25 mcg PO DAILY 09/15/23 09/15/23 [Vitamin D3] Rosuvastatin Calcium [Crestor] 5 mg PO DAILY 09/15/23 09/15/23 Vitamin E Mixed [Vitamin E] 400 unit PO DAILY 09/15/23 09/15/23 Zinc Gluconate [Zinc] 30 mg PO DAILY 09/15/23 09/15/23 Amox/Clav 875/125 [Augmentin 1 tablet PO Q12H 7 Days #14 tablet 09/16/23 875/125 Tab] - PHYSICAL EXAM AT DISCHARGE General Appearance: positive: No acute distress, Alert Eyes Bilateral: positive: Normal inspection, EOMI Neck: positive: Nml inspection, No JVD Respiratory: positive: Chest non-tender, No respiratory distress, Breath sounds nml Cardiovascular: positive: Regular rate & rhythm, No murmur Abdomen: positive: Nml bowel sounds, No distention, Tenderness (Mildly tender to palpation at LLQ) Skin: positive: Color nml, No rash, Warm, Dry - LABS Result Diagrams: 09/16/23 06:04 09/16/23 06:04 - DIAGNOSTIC IMAGING Diagnostic Imaging Results: Final report reviewed Diagnostic Imaging Results Comments: Diverticulitis on CT - FOLLOW UP Follow Up: PCP in 1 week and get a referral to GI from PCP - TIME SPENT Time Spent in Discharge (Minutes): 45"
[2023-09-16] MEDS: CHOLECALCIFEROL 25 MCG TABLET PO SCH (08:43)
[2023-09-16 09:44] VITALS: BP 140/84; O2SAT 96
[2023-09-16] MEDS ORDERED: ATORVASTATIN 10 MG TABLET PO SCH (21:00)
== END 2023-09-16 10:40 | disposition home or self-care (01) ==
LOC: ED 17:28 → MS2 20:53
PROVIDERS: ADMIT Internal Medicine; ATTEND Internal Medicine
DX: K57.32 Diverticulitis of large intestine without perforation or abscess without bleeding (principal); E86.0 Dehydration; E78.00 Pure hypercholesterolemia, unspecified; F41.9 Anxiety disorder, unspecified; Z79.82 Long term (current) use of aspirin; Z79.899 Other long term (current) drug therapy; Z88.0 Allergy status to penicillin; Z90.49 Acquired absence of other specified parts of digestive tract
CPT/HCPCS: 36415; 74177; 80048; 80053; 81001; 83690; 85025; 87086; 96361; 96365; 96366; 96367; 96376; 99284; 99285; A9270; G0378; Q9967; 81003